=== PATIENT | male | born 1955 | race Caucasian/White ===

== ENCOUNTER 2022-12-18 12:52 | Outpatient (CLI) | payer MEDICARE, BC, SELFPAY ==
[2022-12-18 21:30] LABS: Albumin* 4.2 g/dL (3.3-5.0)
[2022-12-18 21:33] LABS: Alanine Aminotransferase* 105 U/L (4-50); Alkaline Phosphatase* 214 U/L (40-150); Aspartate Amino Transferase* 55 U/L (12-35); Bilirubin Total* 1.9 mg/dL (0.1-1.5); Total Protein* 7.4 g/dL (6.0-8.3)
== END 2022-12-18 12:53 | disposition home or self-care (01) ==
LOC: LKVREF 12:54
PROVIDERS: PCP Family Medicine; Visit Provider Emergency Medicine
DX: R74.01 Elevation of levels of liver transaminase levels (principal)
CPT/HCPCS: 80076

== ENCOUNTER 2023-01-17 10:31 | Outpatient (CLI) | payer MEDICARE, BC, SELFPAY | END 2023-01-17 10:32 | disposition home or self-care (01) | PROVIDERS: PCP Family Medicine; Visit Provider Emergency Medicine | DX: E87.6 Hypokalemia (principal); E80.6 Other disorders of bilirubin metabolism; R74.01 Elevation of levels of liver transaminase levels; E11.9 Type 2 diabetes mellitus without complications; I10 Essential (primary) hypertension | CPT/HCPCS: 80076; 82043; 82570 ==

== ENCOUNTER 2023-06-05 09:01 | Outpatient (CLI) | payer MEDICARE, BC, SELFPAY | END 2023-06-05 09:02 | disposition home or self-care (01) | LOC: NFLDREF 06-06 06:20 | PROVIDERS: PCP Emergency Medicine; Referring Provider Emergency Medicine; Visit Provider Emergency Medicine | DX: E78.5 Hyperlipidemia, unspecified (principal) | CPT/HCPCS: 80061 ==

== ENCOUNTER 2023-09-25 10:24 | Outpatient (CLI) | payer MEDICARE, BC, SELFPAY | END 2023-09-25 10:25 | disposition home or self-care (01) | LOC: NFLDREF 10-01 17:26 | PROVIDERS: PCP Emergency Medicine; Visit Provider Emergency Medicine | DX: E78.5 Hyperlipidemia, unspecified (principal) | CPT/HCPCS: 80061 ==

== ENCOUNTER 2023-12-04 09:23 | Outpatient (CLI) | payer MEDICARE, BC, SELFPAY | END 2023-12-04 09:24 | disposition home or self-care (01) | PROVIDERS: PCP Emergency Medicine; Visit Provider Emergency Medicine | DX: R97.20 Elevated prostate specific antigen [PSA] (principal); I10 Essential (primary) hypertension; E11.9 Type 2 diabetes mellitus without complications; Z79.84 Long term (current) use of oral hypoglycemic drugs | CPT/HCPCS: 80053; 82043; 82570; G0103 ==

== ENCOUNTER 2024-06-03 08:32 | Outpatient (CLI) | payer MEDICARE, BC, SELFPAY | END 2024-06-03 08:33 | disposition home or self-care (01) | LOC: LKVREF 08:33 | PROVIDERS: PCP Emergency Medicine; Visit Provider Emergency Medicine | DX: E11.29 Type 2 diabetes mellitus with other diabetic kidney complication (principal); E80.6 Other disorders of bilirubin metabolism; R80.9 Proteinuria, unspecified | CPT/HCPCS: 82043; 82570 ==

== ENCOUNTER 2025-02-16 08:44 | Outpatient (CLI) | payer MEDICARE, BC, SELFPAY | END 2025-02-16 08:45 | disposition home or self-care (01) | LOC: NFLDREF 02-17 06:28 | PROVIDERS: PCP Emergency Medicine; Referring Provider Emergency Medicine; Visit Provider Internal Medicine Nephrology | DX: N18.30 Chronic kidney disease, stage 3 unspecified (principal); R80.9 Proteinuria, unspecified; E11.29 Type 2 diabetes mellitus with other diabetic kidney complication; I10 Essential (primary) hypertension; R74.01 Elevation of levels of liver transaminase levels; E78.5 Hyperlipidemia, unspecified | CPT/HCPCS: 80053; 80061; 80069; 82043; 82570 ==

== ENCOUNTER 2025-03-23 10:15 | Outpatient (CLI) | payer MEDICARE, BC, SELFPAY | END 2025-03-23 10:16 | disposition home or self-care (01) | LOC: LKVREF 10:16 | PROVIDERS: PCP Emergency Medicine; Visit Provider Emergency Medicine | DX: I10 Essential (primary) hypertension (principal); E87.6 Hypokalemia; Z12.5 Encounter for screening for malignant neoplasm of prostate | CPT/HCPCS: 80048; G0103 ==

== ENCOUNTER 2025-04-14 08:41 | Outpatient (CLI) | payer MEDICARE, BC, SELFPAY | END 2025-04-14 08:42 | disposition home or self-care (01) | LOC: NFLDREF 04-16 14:21 | PROVIDERS: PCP Emergency Medicine; Referring Provider Emergency Medicine; Visit Provider Internal Medicine Nephrology | DX: N18.31 Chronic kidney disease, stage 3a (principal) | CPT/HCPCS: 80048; 80069; 82043; 82570 ==

== ENCOUNTER 2025-10-12 10:29 | Outpatient (CLI) | payer MEDICARE, BC, SELFPAY | END 2025-10-12 10:30 | disposition home or self-care (01) | PROVIDERS: Visit Provider Family Medicine | DX: D64.9 Anemia, unspecified (principal); E11.22 Type 2 diabetes mellitus with diabetic chronic kidney disease; I12.9 Hypertensive chronic kidney disease with stage 1 through stage 4 chronic kidney disease, or unspecified chronic kidney disease; N18.31 Chronic kidney disease, stage 3a; R74.01 Elevation of levels of liver transaminase levels; R80.9 Proteinuria, unspecified; R97.20 Elevated prostate specific antigen [PSA] | CPT/HCPCS: 80069; 80076; 82043; 82570; 84153 ==